=== PATIENT | female | born 1940 | race Caucasian/White ===

== ENCOUNTER 2019-08-04 18:16 | Observation (INO) | payer MEDICARE, BC ==
[~2019-08-04] VITALS: Ht 165.1 cm; Wt 66.8 kg
[~2019-08-04 18:16] MED LIST: BAYER CHEWABLE81 MG PO; MULTI-DAY VITAM1 TAB PO; OMEGA-3100 MG PO; PRILOSEC20 MG PO
--- NOTE | 2019-08-04 19:11 | NUR ---
PT RESTING ON BED. NO VISITORS PRESENT. PT AWAKE AND ALERT.
--- NOTE | 2019-08-04 19:51 | NUR ---
RN ADMINISTERED IV MORPHINE 4MG PER EDP JAMES INSTRUCTION. PT RATES PAIN 8/10 AT THIS TIME.
[2019-08-04 20:00] VITALS: BP 155/60
--- NOTE | 2019-08-04 20:12 | NUR ---
PT FAMILY AT BEDSIDE.
--- NOTE | 2019-08-04 20:20 | NUR ---
PT LEFT ED VIA STRETCHER FOR CT.
--- NOTE | 2019-08-04 20:20 | NUR ---
1956-PT RECEIVED IV VERSED 2MG 1999-PT RECEIVED IV VERSED 1MG 2002-PT RECEIVED IV MORPHINE 2MG 2005-PT RECEIVED IV VERSED 1MG PER ALPESH SCHAFFER RN, ALPESH RAMIREZ, AND JOHNY MADRIGAL AT PT BEDSIDE DURING MODERATE SEDATION
[2019-08-04 20:34] LABS: ALBUMIN 3.2 g/dL (3.4-5.0); ANION GAP 13.8 mmol/L (8-16); BILIRUBIN - TOTAL 0.51 mg/dL (0.2-1.3); CALCIUM 8.7 mg/dL (8.5-10.1); CARBON DIOXIDE 24.5 mmol/L (21.0-32.0); CREATININE - SERUM 0.8 mg/dL (0.6-1.3); POTASSIUM - SERUM 4.3 mmol/L (3.5-5.1); PROTEIN - SERUM 6.6 g/dL (6.4-8.2)
[2019-08-04 20:41] LABS: BASOPHILS 0.1 % (0-2); EOSINOPHILS 0.3 % (0-7); HEMOGLOBIN 12.5 g/dL (12-16); IMMATURE GRANULOCYTES 0.5 % (0-5); LYMPHOCYTES 11.2 % (15-50); MCH 32.4 pg (26.0-34.0); MCHC 32.9 g/dL (31.0-37.0); MCV 98.4 fL (80.0-100.0); MEAN PLATELET VOLUME 11.9 fL (7.4-10.4); MONOCYTES 4.4 % (2-11); NEUTROPHILS 83.5 % (40-80); RBC 3.86 10x6/uL (4.00-5.40); RDW 13.5 % (11.5-14.5); WBC 9.6 10x3/uL (4.8-10.8)
[2019-08-04 20:42] LABS: PLATELET COUNT 87 10x3/uL (130-400)
[2019-08-04 20:45] VITALS: BP 137/68
--- NOTE | 2019-08-04 20:45 | NUR ---
PT RETURNED FROM CT VIA STRETCHER.
[2019-08-04 20:48] LABS: PLATELET ESTIMATE DECREASED
--- NOTE | 2019-08-04 21:00 | NUR ---
PT PROVIDED ICE WATER PER REQUEST.
--- NOTE | 2019-08-04 21:15 | NUR ---
PT RESTING ON BED. PT FAMILY AT BEDSIDE.
[2019-08-04 21:30] VITALS: BP 151/66
--- NOTE | 2019-08-04 21:50 | NUR ---
PT RESTING ON BED. PT AWAKE AND ALERT. NO S/S OF ACUTE DISTRESS NOTED.
[2019-08-04 22:00] VITALS: BP 133/52
--- NOTE | 2019-08-04 22:30 | NUR ---
PT RESTING ON BED. PT FAMILY AT BEDSIDE.
--- NOTE | 2019-08-04 23:17 | NUR ---
ADDED PATIENT TO TELE WAIT LIST
--- NOTE | 2019-08-04 23:26 | NUR ---
ROOM CLEAN. PT TRANSPORTED TO ROOM AT THIS TIME.
[2019-08-05 00:09] VITALS: BP 142/55; BMI 24.5
[2019-08-05 00:45] VITALS: BP 142/55
[2019-08-05 05:02] LABS: BASOPHILS 0.1 % (0-2); EOSINOPHILS 0.4 % (0-7); HEMATOCRIT 34.2 % (36.0-48.0); HEMOGLOBIN 11.1 g/dL (12-16); IMMATURE GRANULOCYTES 0.1 % (0-5); LYMPHOCYTES 17.2 % (15-50); MCH 32.2 pg (26.0-34.0); MCHC 32.5 g/dL (31.0-37.0); MCV 99.1 fL (80.0-100.0); MEAN PLATELET VOLUME 12.2 fL (7.4-10.4); MONOCYTES 9.4 % (2-11); NEUTROPHILS 72.8 % (40-80); RBC 3.45 10x6/uL (4.00-5.40); RDW 13.6 % (11.5-14.5); WBC 8.5 10x3/uL (4.8-10.8)
[2019-08-05 05:14] LABS: PLATELET COUNT 107 10x3/uL (130-400)
[2019-08-05 05:34] LABS: CALC OSMOLALITY 279 mosm/kg (275-300); CALCIUM 8.5 mg/dL (8.5-10.1); CARBON DIOXIDE 23.7 mmol/L (21.0-32.0); CHLORIDE - SERUM 106 mmol/L (98-107); CREATININE - SERUM 0.7 mg/dL (0.6-1.3); GLUCOSE 98 mg/dL (74-106); MAGNESIUM - SERUM 1.9 mg/dL (1.8-2.4); PHOSPHOROUS 4.9 mg/dL (2.5-4.9); SODIUM 140 mmol/L (136-145); UREA NITROGEN 15 mg/dL (7-18); eGFR NON AFRICAN AMERICAN 86 mL/min (90-120)
[2019-08-05 06:01] VITALS: BP 120/49
[2019-08-05 07:28] VITALS: BP 116/49
[2019-08-05 09:52] VITALS: Ht 165.1 cm; Wt 66.8 kg
--- NOTE | 2019-08-05 10:30 | NUR ---
PT ASSISTED TO AND FROM BATHROOM, VOID [phone]
[2019-08-05 11:00] VITALS: BP 129/49
--- NOTE | 2019-08-05 11:36 | NUR ---
PT ASSISTED TO AND FROM BATHROOM, VOID [phone]
--- NOTE | 2019-08-05 13:10 | NUR ---
PT FITTED FOR SHOULDER IMMOBILIZER. IMMOBILIZER PLACED AND PT INSTRUCTED HOW TO USE. D/C INSTUCTIONS REVIEWED WITH PT AND FAMILY. VERBALIZED UNDERSTANDING. IV D/C WITH CATHETER TIP INTACT. ALL BELONGINGS SENT WITH PT. LEFT VIA WHEELCHAIR TO PERSONAL VEHICLE.
[2019-08-12] MEDS ORDERED: COREG 3.1253.125 MG PO (12:27)
[2019-08-12] MEDS ORDERED: PRAVASTATIN SOD10 MG PO (12:28)
[2019-08-12] MEDS ORDERED: METHOTREXATE2.5 MG (12:29)
[2019-08-12] MEDS ORDERED: ALEVE220 MG PO (12:30)
== END 2019-08-05 13:12 | disposition home or self-care (01) ==
LOC: D.ER 18:16 → D.M3 20:59 → OBSVTIME 20:59 → D.M3 08-05 13:12
PROVIDERS: Emergency Medicine; ADMIT Internal Medicine Nephrology; ATTEND Internal Medicine Nephrology
DX: S42.201A Unspecified fracture of upper end of right humerus, initial encounter for closed fracture (principal); W19.XXXA Unspecified fall, initial encounter; S43.004A Unspecified dislocation of right shoulder joint, initial encounter; D64.9 Anemia, unspecified; K21.9 Gastro-esophageal reflux disease without esophagitis

== ENCOUNTER 2019-08-14 05:20 | Day surgery (SDC) | payer MEDICARE, BC ==
[2019-08-12 14:32] LABS: BASOPHILS 0.1 % (0-2); HEMATOCRIT 34.9 % (36.0-48.0); HEMOGLOBIN 10.9 g/dL (12-16); IMMATURE GRANULOCYTES 0.5 % (0-5); LYMPHOCYTES 23.1 % (15-50); MCH 32.4 pg (26.0-34.0); MCHC 31.2 g/dL (31.0-37.0); MCV 103.9 fL (80.0-100.0); MEAN PLATELET VOLUME 11.7 fL (7.4-10.4); NEUTROPHILS 64.3 % (40-80); PLATELET COUNT 127 10x3/uL (130-400); RBC 3.36 10x6/uL (4.00-5.40); RDW 14.2 % (11.5-14.5); WBC 8.6 10x3/uL (4.8-10.8)
[2019-08-12 14:58] LABS: ANION GAP 14.6 mmol/L (8-16); CARBON DIOXIDE 24.9 mmol/L (21.0-32.0); POTASSIUM - SERUM 4.5 mmol/L (3.5-5.1)
[~2019-08-14] VITALS: Ht 160 cm; Wt 66.7 kg
[~2019-08-14 05:20] MED LIST changes: +ALEVE220 MG PO; +COREG 3.1253.125 MG PO; +METHOTREXATE2.5 MG; +PRAVASTATIN SOD10 MG PO
[2019-08-14] MEDS ORDERED: Omeprazole Dr 20 Mg (05:55)
[2019-08-14] MEDS ORDERED: OS-CAL500 MG PO (05:57)
[2019-08-14 06:15] VITALS: BP 137/48; Ht 160 cm; Wt 66.7 kg
--- NOTE | 2019-08-14 10:08 | NUR ---
POST OP ANBX INITIATED ORDERED. ICE AND PILLOW APPLIED.
== END 2019-08-14 12:00 | disposition home or self-care (01) ==
LOC: D.OPS 05:20 → D.PAN 07:30 → D.OPS 07:30
PROVIDERS: ATTEND Orthopaedic Surgery
DX: S42.221A 2-part displaced fracture of surgical neck of right humerus, initial encounter for closed fracture (principal); X58.XXXA Exposure to other specified factors, initial encounter

== ENCOUNTER → 2019-10-23 12:13 | Outpatient (CLI) | payer MEDICARE, BC ==
[2019-08-14 06:15] VITALS: BMI 26.1
[~2019-10-23 12:13] MED LIST changes: +OS-CAL500 MG PO; +Omeprazole Dr 20 Mg
== END | disposition home or self-care (01) ==
LOC: D.RAD 10-21 13:30
PROVIDERS: ATTEND Orthopaedic Surgery
DX: M25.511 Pain in right shoulder (principal)

== ENCOUNTER → 2019-10-27 15:49 | Outpatient (CLI) | payer MEDICARE, BC ==
[2019-08-14 06:15] VITALS: BMI 26.1
== END | disposition home or self-care (01) ==
LOC: D.LABREF 15:49
PROVIDERS: ATTEND Orthopaedic Surgery
DX: M19.011 Primary osteoarthritis, right shoulder (principal)